=== PATIENT | female | born 1945 | race Caucasian/White ===

== ENCOUNTER 2022-10-09 19:29 | Outpatient (CLI) | payer MEDICARE, SELFPAY | END 2022-10-09 19:30 | disposition home or self-care (01) | LOC: NFLDUCREF 19:33 | PROVIDERS: PCP Family Medicine; Visit Provider Nurse Practitioner Family | DX: R11.10 Vomiting, unspecified (principal); N39.0 Urinary tract infection, site not specified | CPT/HCPCS: 87086; 87186 ==

== ENCOUNTER 2022-12-25 10:26 | Outpatient (CLI) | payer MEDICARE, SELFPAY ==
--- NOTE | 2022-12-25 10:15 | CRLHL7_ITS ---
For Patients: As a result of the Century Cures Act, medical imaging exams and procedure reports are released immediately into your electronic medical record. You may view this report before your referring provider. If you have questions, please contact your health care provider. INDICATION: Abnormal appearing esophagus on a recent CT angiogram of the chest, abdomen and pelvis [facility] December 07, 2022. The patient does report an intermittent history of dysphagia. Possible reflux. TECHNIQUE: Single contrast esophagram. The patient was imaged upright and in the recumbent as well as decubitus positions. COMPARISON: Correlation is made with a CT Scan December 07, 2022 performed at [facility]. FINDINGS: The esophagus is mildly diffusely patulous. There is no definite primary stripping wave. No tertiary contractions were observed either. There is a standing column of barium within nearly the entire esophagus throughout most of the examination. There is no obstruction as contrast does pass slowly into the stomach and duodenum. The appearance is not entirely compatible with achalasia but more likely significant presbyesophagus. Reflux could not be elicited in the upright or recumbent/decubitus positions without and with Valsalva maneuvers. No definite hiatal hernia either. 3 minutes 49 seconds fluoroscopy time utilized. IMPRESSION: 1. Mild diffusely patulous esophagus. 2. No primary stripping wave. 3. Findings may reflect significant presbyesophagus. 4. The contrast did not completely clear from the esophagus throughout the entire examination including with the patient upright. Dictated by Lc Ordoñez MD @ 12/25/2022 12:19:53 PM (Electronically Signed)
== END 2022-12-25 10:27 | disposition home or self-care (01) ==
LOC: RAD 10:27
PROVIDERS: PCP Family Medicine; Visit Provider Family Medicine
DX: K21.9 Gastro-esophageal reflux disease without esophagitis (principal); R93.3 Abnormal findings on diagnostic imaging of other parts of digestive tract
CPT/HCPCS: 74221

== ENCOUNTER 2023-02-26 11:54 | Outpatient (CLI) | payer MEDICARE, SELFPAY | END 2023-02-26 11:55 | disposition home or self-care (01) | LOC: AMB 03-02 12:12 | PROVIDERS: PCP Family Medicine; Visit Provider Family Medicine | DX: R41.82 Altered mental status, unspecified (principal) | CPT/HCPCS: A0425; A0429 ==

== ENCOUNTER 2023-02-26 12:21 | Emergency (ER) | payer MEDICARE, SELFPAY ==
[2023-02-26] VITALS (12 sets, daily range): BP systolic 128–183; BP diastolic 70–98; PULSE 86–95; RESP 16; TEMP 36.9; O2SAT 95–98; BMI 22.3
--- NOTE | 2023-02-26 12:23 | CRLHL7_ITS ---
For Patients: As a result of the Century Cures Act, medical imaging exams and procedure reports are released immediately into your electronic medical record. You may view this report before your referring provider. If you have questions, please contact your health care provider. INDICATION: Visual changes. Weakness. TECHNIQUE: CT head without contrast. COMPARISON: None. FINDINGS: CSF spaces: Within normal limits for age. Brain parenchyma and extra-axial spaces: Moderate cerebral atrophy is present. The franklin-white differentiation is normal. No sign of mass, hemorrhage, or midline shift. No extra-axial fluid collection. Skull base and calvarium: The visualized paranasal sinuses and mastoid air cells demonstrate no acute or significant findings. The visualized orbits are grossly unremarkable. No skull fractures. IMPRESSION: 1. No acute intracranial abnormality. 2. Mild cerebral atrophy. Please note that all CT scans at this facility use dose modulation, iterative reconstruction, and/or weight-based dosing when appropriate to reduce radiation dose to as low as reasonably achievable. Dictated by Anthony Balbuena MD @ 02/26/2023 12:49:20 PM (Electronically Signed)
--- NOTE | 2023-02-26 12:24 | CRLHL7_ITS ---
For Patients: As a result of the Century Cures Act, medical imaging exams and procedure reports are released immediately into your electronic medical record. You may view this report before your referring provider. If you have questions, please contact your health care provider. Indication: Weakness Comparison: None available. Technique: Single AP view chest Findings: There is hyperinflation and chronic interstitial change with minimal basilar atelectasis versus scar. Calcified mediastinal and hilar lymph nodes are appreciated. There is no pneumothorax or pleural effusion. The cardiac silhouette is mildly prominent with a tortuous thoracic aorta. The bony thorax is grossly intact. Impression: Hyperinflation and chronic interstitial change with likely mild superimposed pulmonary vascular congestion. Dictated by Sanya Akbar MD @ 02/26/2023 3:46:49 PM (Electronically Signed)
--- NOTE | 2023-02-26 12:37 | ED.GENADULT ---
HPI - General Adult General Date Seen: 02/26/23 Chief complaint: Altered Mental Status Stated complaint: Possible Stroke Time Seen by Provider: 02/26/23 12:28 Source: patient, EMS and RN notes reviewed Mode of arrival: EMS Limitations: no limitations History of Present Illness HPI narrative: Patient was brought in by EMS on a stroke code, on arrival here they stated is a soft stroke code. She admits she did not feel good this morning when she woke up. After she was sitting on the couch drinking her coffee and looking at her iPad. She admits she was not feeling right on the couch, went to get another cup of coffee. She has been endorsing visual changes with visible lines in them. She has had history of migraines and will get visual changes with these. She had a T[place] at [facility] in [place], since then these visible visual lines have worsened. No headache. She is seeing these visual changes in both eyes. She noted when she was reading that she could not retain any of the information, tried reading out loud. She did try getting up to go walk to get more coffee and had to sit down twice on the way into the kitchen. She felt extremely weak. She denies any chest pain, no palpitations. There is no focal motor weakness it was a global weakness. No fevers or chills. She notes no numbness or tingling. She does feels fuzzy and unclear in her head. She is not feeling well and does not feel right. This spell on the couch was at about 11:00 a.m., possibly latest at 11:30 a.m. patient was seen in the hallway when EMS 1st arrived, was diverted to have a noncontrast head CT. Related Data Home Medications Medication Instructions Recorded Confirmed alendronate 70 mg tablet ea PO 10/09/22 10/09/22 mirabegron 25 mg tablet,extended ea PO 10/09/22 10/09/22 release 24 hr (Myrbetriq) nabumetone 750 mg tablet 750 mg PO BID 10/09/22 02/26/23 omeprazole 20 mg capsule,delayed 20 mg PO 10/09/22 10/09/22 release sertraline 100 mg tablet 250 mg PO 10/09/22 10/09/22 simvastatin 20 mg tablet 20 mg PO 10/09/22 10/09/22 Previous Rx's Medication Instructions Recorded metoclopramide HCl 10 mg tablet 10 mg PO Q6H PRN nausea and 10/09/22 (Reglan) vomiting #30 tabs sulfamethoxazole 800 1 tab PO BID #6 tabs 10/09/22 mg-trimethoprim 160 mg tablet (Bactrim DS) Allergies Allergy/AdvReac Type Severity Reaction Status Date / Time zolpidem [From Ambien] Allergy Verified 02/26/23 12:58 Review of Systems Status of ROS: Reports: 6 or more systems reviewed and unremarkable except as noted in History and below [facility] Medical History UTI (urinary tract infection) ?N39.0 - Urinary tract infection, site not specified (ICD-10) Retching ?R11.10 - Vomiting, unspecified (ICD-10) Social History Smoking Status: Former smoker How often do you have a drink containing alcohol: 4 or more times a week How many standard drinks containing alcohol do you have on a typical day: 1 or 2 AUDIT-C Alcohol total score: 4 Non-prescribed substance use: denies use Exam Const: Vital Signs, click to edit/add: Vital Signs - 24 hr 02/26/23 12:42 02/26/23 12:45 02/26/23 13:00 Temperature 98.4 F Pulse Rate [Right Pulse Oximeter] 91 95 93 Respiratory Rate 16 16 16 Blood Pressure [Le ft Upper Arm] 158/82 H 160/70 H 166/76 H Pulse Oximetry 96 98 97 Oxygen Delivery Me thod Room Air Room Air Room Air 02/26/23 13:32 02/26/23 13:45 02/26/23 14:00 Temperature Pulse Rate [Right Pulse Oximeter] 89 92 92 Respiratory Rate 16 16 16 Blood Pressure [Le ft Upper Arm] 151/98 H 172/84 H 183/87 H Pulse Oximetry 95 96 96 Oxygen Delivery Me thod Room Air 02/26/23 14:15 02/26/23 14:30 02/26/23 14:45 Temperature Pulse Rate [Right Pulse Oximeter] 93 91 88 Respiratory Rate 16 16 16 Blood Pressure [Le ft Upper Arm] 161/89 H 180/83 H 182/87 H Pulse Oximetry Oxygen Delivery Me thod 02/26/23 15:00 02/26/23 16:00 02/26/23 16:30 Temperature Pulse Rate [Right Pulse Oximeter] 86 Respiratory Rate 16 16 Blood Pressure [Le ft Upper Arm] 162/88 H 141/73 H 128/93 H Pulse Oximetry Oxygen Delivery Me thod Documenting provider has reviewed patient's vital signs: yes Common normals: no apparent distress, average body habitus, oriented x3, no limitations, healthy appearing, alert and well nourished General appearance: cooperative, comfortable, well kempt and well developed HENMT: Common normals: normocephalic, head/scalp atraumatic, hearing grossly normal bilaterally, external ears normal, external nose normal, nasal mucous membranes and turbinates normal, moist oral mucous membranes, oropharynx normal, dentition normal and gingiva normal Head and scalp: normocephalic and atraumatic Face and sinus: normal facial exam Nose: external nose normal and nasal mucous membranes and turbinates normal External ear: external ears normal Eye: Common normals: PERRL, EOMs intact bilaterally, conjunctivae normal and no scleral icterus Conjunctiva: conjunctiva(e) normal Pupil: PERRL Neck & C-Spine: Common normals: full ROM, no lymphadenopathy, supple, no JVD and thyroid normal Thyroid: thyroid normal Resp: Common normals: normal respiratory effort, no retractions, no use of accessory muscles and clear to auscultation bilaterally Auscultation: clear to auscultation bilaterally Cardio: Common normals: no JVD, regular rate, regular rhythm, S1 normal heart sound, S2 normal heart sound, no gallops, no clicks and no murmurs Rate: regular rate Rhythm: regular rhythm Heart sounds: S1 normal and S2 normal GI: Common normals: Normal to inspection, nondistended, normoactive bowel sounds present, soft to palpation, non-tender, no hepatosplenomegaly and no masses Palpation: soft and no hepatosplenomegaly Neuro: Common normals: oriented x3 Sensorium/orientation: alert Psych: Appearance: well kempt Course Reevaluation(s) Time of Reevaluation #1: 15:42 Reevaluation #1: Patient is at MRI, spoke with her daughter whom is here. We will await the MRI, have reviewed overall labs are reassuring. Still awaiting urinalysis results. Time of Reevaluation #2: 17:17 Reevaluation #2: Have reviewed with patient and her 2 children here that we have not found anything to explain her current symptoms. They bring up that she is due for EGD, know that she has a dilated esophagus. They wonder if the esophagus could be causing her to have tracheal issues. Reviewed that the esophagus is much more compliant/soft than the trachea which has rings that keep it open. She was having shortness of breath before the TAVR, this has continued but she admits that it is much better. She has no peripheral edema, no hypoxia, no tachypnea and lungs are CTAB. Blood pressure was mildly elevated here for most of the day but now is better (was 103 while I talked to her), now most recent 128 systolic. We discussed labile hypertension, problems with initiating blood pressure medications and when the blood pressure normal, can drop it to be too low. Her MRI is showing some mild volume loss and chronic microangiopathy, reviewed that the angiopathy can be consistent with small vessel changes from elevated blood pressures. She feels that her blood pressures have usually run low, not high. Her son is willing to stay with her tonight, she is comfortable going home. Unclear why she was feeling the way she was today, do not have a specific etiology but have reviewed that if she has ongoing symptoms or changes, please seek re-evaluation. Consultations Consultation #1: Head CT results called to me, no acute findings. Time: 12:51 Consultation #2: Did speak with Stroke Neurology at [facility]. He did recommend doing MRI brain noncontrast. Thought more likely to be migrainous in nature. Did not feel that CTA is were necessary as this is very unlikely to be a large vessel occlusion. Dr. Anthony is the neurologist. Time: 13:02 Vital Signs Vital signs: Initial Vital Signs Temperature 98.4 F 02/26/23 12:42 Temperature Source Temporal Artery Scan 02/26/23 12:42 Pulse Rate 91 02/26/23 12:42 Respiratory Rate 16 02/26/23 12:42 Blood Pressure 158/82 H 02/26/23 12:42 Blood Pressure Mean 107 H 02/26/23 12:42 Blood Pressure Position Semi-Fowlers 02/26/23 12:42 Pulse Oximetry 96 02/26/23 12:42 Oxygen Delivery Method Room Air 02/26/23 12:42 Vital Signs Temperature 98.4 F 02/26/23 12:42 Pulse Rate 91 02/26/23 12:42 Respiratory Rate 16 02/26/23 12:42 Blood Pressure 158/82 H 02/26/23 12:42 Pulse Oximetry 96 02/26/23 12:42 Oxygen Delivery Method Room Air 02/26/23 12:42 Temperature 98.4 F 02/26/23 12:42 Pulse Rate 86 02/26/23 15:00 Respiratory Rate 16 02/26/23 16:30 Blood Pressure 128/93 H 02/26/23 16:30 Pulse Oximetry 96 02/26/23 14:00 Oxygen Delivery Method Room Air 02/26/23 13:32 Medical Decision Making Lab Data Lab results reviewed: Yes I reviewed the patient's lab results Labs: Lab Results 02/26/23 02/26/23 02/26/23 Range/Units 12:25 13:30 16:30 WBC 5.75 (4.50-11.00) K/uL RBC 4.05 (4.00-5.20) m/uL Hgb 12.7 (12.0-16.0) gm/dL Hct 38.3 (33.0-51.0) % MCV 95 (80-100) fL MCH 31 (26-34) pg MCHC 33 (32-36) gm/dL RDW Coeff of Ignacio 14.6 (11.5-15.5) % Plt Count 134 L (140-440) K/uL Neut % (Auto) 79.8 H (42.0-72.0) % Lymph % (Auto) 11.0 L (20-44) % [place] % (Auto) 8.3 (0.0-11.0) % Eos % (Auto) 0.5 (0.0-7.0) % Baso % (Auto) 0.2 (0.0-3.0) % Neut # (Auto) 4.60 (1.7-7.0) K/uL Lymph # (Auto) 0.60 L (0.90-2.90) K/uL [place] # (Auto) 0.50 (0.00-0.90) K/UL Eos # (Auto) 0.03 (0.00-0.50) K/uL Baso # (Auto) 0.01 (0.00-0.30) K/uL Sodium 136 (135-149) mmol/L Potassium 4.7 (3.6-5.1) mmol/L Chloride 102 (96-114) mmol/L Carbon Dioxide 29 (20-32) mmol/L BUN 15 (7-30) mg/dL Creatinine 0.7 (0.5-1.5) mg/dL Estimated Creat Clear 41.33 Estimated GFR 90 ml/min Glucose 107 (60-115) mg/dL Lactate 1.7 (0.5-1.9) mmol/L Calcium 9.3 (8.4-10.6) mg/dL Magnesium 1.7 (1.5-2.6) mg/dL Total Bilirubin 1.2 (0.1-1.5) mg/dL AST 54 H (12-35) U/L ALT 31 (4-35) U/L Alkaline Phosphatase 95 (40-150) U/L C-Reactive Protein 0.6 (0.5-1.0) mg/dL NT-Pro-B Natriuret Pep 810 pg/mL Total Protein 7.3 (6.0-8.3) g/dL Albumin 4.5 (3.3-5.0) g/dL Urine Color Yellow (Yellow) Urine Appearance Clear (Clear) Urine pH 5.5 (5.0-8.5) Ur Specific [place] <= 1.005 (1.000-1.030) Urine Protein Negative (Negative) Urine Glucose (UA) Negative (Negative) Urine Ketones Negative (Negative) Urine Blood 1+ A (Negative) Urine Nitrite Negative (Negative) Urine Bilirubin Negative (Negative) Urine Urobilinogen 0.2 (0.2-1.0) Ur Leukocyte Esterase Negative (Negative) Urine RBC 2-5 A (0-2) Urine WBC 0-2 (0-5) Ur Squamous Epith Cells None (None-Few) Urine Bacteria None (None) Ethyl Alcohol < 0.01 L (0.01-0.03) % SARS-CoV-2 (PCR) Negative SARS-CoV-2 (Negative) POC Troponin I 0.00 L (0.01-0.04) ng/ml Imaging Data Chest x-ray: Attestation: I have reviewed the pertinent imaging results. Radiologist's impression: Patient: LELE FISHER Facility:?[facility] Patient ID:?[id number] Site Patient ID:?[id number]. Site :?[id number] Study:?XRay Chest 1 VIEW-02/26/2023 3:20:05 PM Ordering Physician:Liza Goldberg Final Report: Indication: Weakness Comparison: None available. Technique: Single AP view chest Findings: There is hyperinflation and chronic interstitial change with minimal basilar atelectasis versus scar. Calcified mediastinal and hilar lymph nodes are appreciated. There is no pneumothorax or pleural effusion. The cardiac silhouette is mildly prominent with a tortuous thoracic aorta. The bony thorax is grossly intact. Impression: Hyperinflation and chronic interstitial change with likely mild superimposed pulmonary vascular congestion. Dictated by Sanya Akbar MD @ 02/26/2023 3:46:49 PM (Electronic Signature) MR Brain: Attestation: I have reviewed the pertinent imaging results. Radiologist's impression: Patient: LELE FISHER Facility:?[facility] Patient ID:?[id number] Site Patient ID:?[id number]. Site :?[id number] Study:?MRI Head W/O-02/26/2023 4:41:01 PM Ordering Physician:Liza Goldberg Final Report: Indication: Visual changes, difficulty reading/remembering Technique: Multiplanar, multisequence MRI of the brain obtained without contrast. Comparison: Earlier same day CT head Findings: The ventricles and cortical sulci are mildly prominent. No hydrocephalus or herniation. No acute/subacute ischemia, intracranial hemorrhage or abnormal extra-axial fluid collection. Scattered punctate foci of FLAIR hyperintensity are noted throughout the supratentorial white matter. Partially empty sella variant. Major expected intracranial flow voids are visualized. Bone marrow signal is unremarkable. Hyperostosis frontalis interna. No suspicious findings in the regional soft tissues. No paranasal sinus air-fluid level. Trace nonspecific fluid at the mastoid tips. Included orbits are unremarkable. Impression: 1. No evidence of acute intracranial abnormality. 2. Mild generalized cerebral volume loss, and mild chronic microangiopathy changes. Dictated by Cindy Marquez MD @ 02/26/2023 4:57:07 PM (Electronic Signature) ECG Data Attestation: I personally reviewed and interpreted this ECG as follows: (Sinus rhythm, 92 beats per minute, no acute pathology. QT corrected 464 milliseconds.) Prior ECG tracings: not available for review Critical Care Time Critical Care Time Critical Care Time: No Discharge Plan Discharge Clinical Impression: Weakness, Alteration in vision Patient Disposition: Home, Self-Care Condition: Stable Instructions: Weakness (ED) Additional Instructions: Need to see your primary provider in keep your other specialty appointments that have scheduled. If you have return of increased weakness, are unable to walk, develop new or concerning symptoms, do recommend re-evaluation. There is no evidence of acute stroke, your labs are reassuring. Activity Level: Activity as Tolerated Prescriptions: No Action sertraline 100 mg tablet 250 mg PO omeprazole 20 mg capsule,delayed release(DR/EC) 20 mg PO Myrbetriq 25 mg tablet extended release 24 hr PO simvastatin 20 mg tablet 20 mg PO Patient Comments: TAKE 1 TABLET BY MOUTH EVERY DAY IN THE EVENING alendronate 70 mg tablet PO nabumetone 750 mg tablet 750 mg PO BID metoclopramide HCl [Reglan] 10 mg tablet 10 mg PO Q6H PRN (Reason: nausea and vomiting) Qty: 30 0RF sulfamethoxazole-trimethoprim [Bactrim DS] 800-160 mg tablet 1 tab PO BID Qty: 6 0RF Follow Up/Referrals: Annabelle Encarnacion DO [Primary Care Provider] - Stand Alone Forms: MyHealth Info Instructions
--- NOTE | 2023-02-26 13:03 | CRLHL7_ITS ---
For Patients: As a result of the Century Cures Act, medical imaging exams and procedure reports are released immediately into your electronic medical record. You may view this report before your referring provider. If you have questions, please contact your health care provider. Indication: Visual changes, difficulty reading/remembering Technique: Multiplanar, multisequence MRI of the brain obtained without contrast. Comparison: Earlier same day CT head Findings: The ventricles and cortical sulci are mildly prominent. No hydrocephalus or herniation. No acute/subacute ischemia, intracranial hemorrhage or abnormal extra-axial fluid collection. Scattered punctate foci of FLAIR hyperintensity are noted throughout the supratentorial white matter. Partially empty sella variant. Major expected intracranial flow voids are visualized. Bone marrow signal is unremarkable. Hyperostosis frontalis interna. No suspicious findings in the regional soft tissues. No paranasal sinus air-fluid level. Trace nonspecific fluid at the mastoid tips. Included orbits are unremarkable. Impression: 1. No evidence of acute intracranial abnormality. 2. Mild generalized cerebral volume loss, and mild chronic microangiopathy changes. Dictated by Cindy Marquez MD @ 02/26/2023 4:57:07 PM (Electronically Signed)
[2023-02-26 13:41] LABS: Lactate* 1.7 mmol/L (0.5-1.9)
[2023-02-26 13:44] LABS: Basophils Absolute Auto 0.01 K/uL (0.00-0.30); Basophils Percent Auto 0.2 % (0.0-3.0); Eosinophils Absolute Auto 0.03 K/uL (0.00-0.50); Eosinophils Percent Auto 0.5 % (0.0-7.0); Hematocrit 38.3 % (33.0-51.0); Hemoglobin* 12.7 gm/dL (12.0-16.0); Immature Granulocytes Abs Auto 0.01 K/uL (0.00-0.30); Immature Granulocytes Pct Auto 0.2 %; Mean Corpuscular HGB Conc 33 gm/dL (32-36); Mean Corpuscular Hemoglobin 31 pg (26-34); Mean Corpuscular Volume 95 fL (80-100); Monocytes Percent Auto 8.3 % (0.0-11.0); Neutrophils Percent Auto 79.8 % (42.0-72.0); Platelet Count* 134 K/uL (140-440); RDW Coefficient of Variation % 14.6 % (11.5-15.5); Red Blood Count 4.05 m/uL (4.00-5.20); White Blood Count* 5.75 K/uL (4.50-11.00)
[2023-02-26 13:45] LABS: Slide Review Reflex No
[2023-02-26 14:12] LABS: Blood Urea Nitrogen* 15 mg/dL (7-30); Carbon Dioxide* 29 mmol/L (20-32); Chloride* 102 mmol/L (96-114); Creatinine* 0.7 mg/dL (0.5-1.5); Est. Creatinine Clearance* 41.33; Estimated Glomerular Filt Rate 90 ml/min; Potassium* 4.7 mmol/L (3.6-5.1); Sodium* 136 mmol/L (135-149)
[2023-02-26 14:13] LABS: Alanine Aminotransferase* 31 U/L (4-35); Albumin* 4.5 g/dL (3.3-5.0); Alkaline Phosphatase* 95 U/L (40-150); Aspartate Amino Transferase* 54 U/L (12-35); Bilirubin Total* 1.2 mg/dL (0.1-1.5); C Reactive Protein* 0.6 mg/dL (0.5-1.0); Calcium* 9.3 mg/dL (8.4-10.6); Glucose* 107 mg/dL (60-115); Total Protein* 7.3 g/dL (6.0-8.3)
[2023-02-26 14:16] LABS: Magnesium* 1.7 mg/dL (1.5-2.6); NT Pro B Type NatriureticPept* 810 pg/mL
[2023-02-26 14:17] LABS: Ethanol* < 0.01 % (0.01-0.03)
[2023-02-26 14:18] LABS: SARS PCR* Negative SARS-CoV-2 (Negative)
[2023-02-26 16:38] LABS: Appearance Urine Clear (Clear); Bilirubin Urine Negative (Negative); Blood Urine 1+ (Negative); Color Urine Yellow (Yellow); Glucose Urine Negative (Negative); Ketones Urine Negative (Negative); Leukocyte Esterase Urine Negative (Negative); Nitrite Urine Negative (Negative); Protein Urine Negative (Negative); Specific Gravity Urine <= 1.005 (1.000-1.030); Urobilinogen Urine 0.2 (0.2-1.0); pH Urine 5.5 (5.0-8.5)
[2023-02-26 16:49] LABS: WBC Urine 0-2 (0-5)
== END 2023-02-26 17:55 | disposition home or self-care (01) ==
PROVIDERS: Emergency Provider Family Medicine; PCP Family Medicine
DX: R53.1 Weakness (principal); H53.8 Other visual disturbances
CPT/HCPCS: 36415; 70450; 70551; 71045; 80053; 81001; 82077; 83605; 83735; 83880; 84484; 85025; 86140; 87635; 93005; 94761; 99284; 99285

== ENCOUNTER 2023-03-30 22:21 | Emergency (ER) | payer MEDICARE, SELFPAY ==
[2023-03-30 22:31] VITALS: BP 133/77; PULSE 96; RESP 16; TEMP 36.3; O2SAT 97; BMI 23.0
--- NOTE | 2023-03-30 22:38 | ED.GENADULT ---
HPI - General Adult General Time Seen by Provider: 22:38 Date Seen: 03/30/23 Chief complaint: Unspecified Complaint, Adult Stated complaint: esophagus issues Time Seen by Provider: 03/30/23 22:38 Source: patient and RN notes reviewed Mode of arrival: ambulatory Limitations: no limitations History of Present Illness HPI narrative: May is a very pleasant 78-year-old female who is 2 and half months status post aortic valve replacement, history of breast cancer status post mastectomy, history of esophageal achalasia who comes to the emergency room with inability to eat or drink over the past 48 hours. Patient is actually scheduled to see [facility] surgeon at [place] tomorrow morning after having had an endoscopy and motility study with [facility] last week. Unfortunately in the past 48 hours May has had more vomiting. Today she has been unable to keep any fluids or food down. At times she has had discomfort in her Right upper quadrant but there is no pain present at this time. She has not otherwise been ill and has not had any diarrhea. She notes that she is also short of breath, but states that this has been a chronic thing since before her valve replacement. She was hoping that the valve replacement would help. She notes however that a [employer] supervisor told her that she had scarring of her lung tissue from previous aspiration. Related Data Home Medications Medication Instructions Recorded Confirmed alendronate 70 mg tablet ea PO 10/09/22 10/09/22 mirabegron 25 mg tablet,extended ea PO 10/09/22 10/09/22 release 24 hr (Myrbetriq) nabumetone 750 mg tablet 750 mg PO BID 10/09/22 02/26/23 omeprazole 20 mg capsule,delayed 20 mg PO 10/09/22 10/09/22 release sertraline 100 mg tablet 250 mg PO 10/09/22 10/09/22 simvastatin 20 mg tablet 20 mg PO 10/09/22 10/09/22 Previous Rx's Medication Instructions Recorded metoclopramide HCl 10 mg tablet 10 mg PO Q6H PRN nausea and 10/09/22 (Reglan) vomiting #30 tabs sulfamethoxazole 800 1 tab PO BID #6 tabs 10/09/22 mg-trimethoprim 160 mg tablet (Bactrim DS) Allergies Allergy/AdvReac Type Severity Reaction Status Date / Time zolpidem [From Ambien] Allergy Verified 02/26/23 12:58 Review of Systems Status of ROS: Reports: 10 or more systems reviewed and unremarkable except as noted in History and below Const: Denies: fever or chills ENMT: Denies: throat pain, difficulty swallowing or hoarseness Cardio: Reports: chest pain ( when trying to eat) and shortness of breath with exertion ( chronic) Resp: Reports: shortness of breath ( chronic); Denies: cough GI: Reports: abdominal pain ( intermittent right upper quadrant), nausea and vomiting; Denies: diarrhea or difficulty swallowing PFSH PFS Medical History UTI (urinary tract infection) ?N39.0 - Urinary tract infection, site not specified (ICD-10) Retching ?R11.10 - Vomiting, unspecified (ICD-10) Social History Smoking Status: Former smoker How often do you have a drink containing alcohol: 4 or more times a week How many standard drinks containing alcohol do you have on a typical day: 1 or 2 AUDIT-C Alcohol total score: 4 Non-prescribed substance use: denies use Exam Narrative: Exam Narrative: kvng is a very pleasant well-spoken woman. She has occasional episodes of needing to spit into vomit bag. Her color is good. Neck is supple. Heart with a regular rate and rhythm. I do have increased S2 quality but no click that I would normally associated with a valve. Lungs are clear bilaterally. no crackles are noted in the lower lung spangler. Abdomen is soft nontender. No right upper quadrant tenderness -negative Bynum sign. Const: Vital Signs, click to edit/add: Vital Signs - 24 hr 03/30/23 22:31 03/30/23 23:53 Temperature 97.4 F L 97.8 F Pulse Rate [Right Pulse Oximeter] 96 78 Respiratory Rate 16 16 Blood Pressure [Ri ght Upper Arm] 133/77 130/78 Pulse Oximetry 97 97 Oxygen Delivery Me thod Room Air Room Air Documenting provider has reviewed patient's vital signs: yes Course Course Hospital Course: At this time patient presents with complaints of inability to eat or drink. This would be consistent with esophageal achalasia. May does not report any recent illnesses diarrhea or ill contacts to think that this would be something like gastroenteritis or the stomach flu. We spoke about medication possibilities which are not noted to be first-line treatment but I would be willing to try. We spoke specifically about nitroglycerin but patient states that she normally has low blood pressure. Of course there is a risk for sudden the lower in blood pressure although now with her mechanical valve and relief of aortic stenosis this would be something I would be willing to try. Alternatively we could do fluids and check blood work and have patient follow-up as scheduled tomorrow morning with surgery. They are electing (her son is present with her) to do fluids and blood work only. They are also a many able to chest x-ray as she has had history of aspiration in the past. Vital Signs Vital signs: Initial Vital Signs Temperature 97.4 F L 03/30/23 22:31 Temperature Source Temporal Artery Scan 03/30/23 22:31 Pulse Rate 96 03/30/23 22:31 Pulse Rhythm Regular 03/30/23 22:31 Respiratory Rate 16 03/30/23 22:31 Blood Pressure 133/77 03/30/23 22:31 Blood Pressure Mean 95 03/30/23 22:31 Blood Pressure Position Sitting 03/30/23 22:31 Pulse Oximetry 97 03/30/23 22:31 Oxygen Delivery Method Room Air 03/30/23 22:31 Vital Signs Temperature 97.4 F L 03/30/23 22:31 Pulse Rate 96 03/30/23 22:31 Respiratory Rate 16 03/30/23 22:31 Blood Pressure 133/77 03/30/23 22:31 Pulse Oximetry 97 03/30/23 22:31 Oxygen Delivery Method Room Air 03/30/23 22:31 Temperature 97.8 F 03/30/23 23:53 Pulse Rate 78 03/30/23 23:53 Respiratory Rate 16 03/30/23 23:53 Blood Pressure 130/78 03/30/23 23:53 Pulse Oximetry 97 03/30/23 23:53 Oxygen Delivery Method Room Air 03/30/23 23:53 Medical Decision Making MDM Narrative Medical decision making narrative: 1. Esophageal achalasia -with inability to eat or drink in the last 24 hours. Patient noted to be feeling better after 1 L of normal saline and 4 mg of Zofran. Patient declined nitroglycerin. Will discharge patient home at this time. Have her follow-up as scheduled tomorrow morning. 2. Disposition-home with her son. Return for worsening symptoms and as needed. Medical Records Medical records reviewed: Yes I reviewed the patient's medical records Lab Data Lab results reviewed: Yes I reviewed the patient's lab results Labs: Lab Results 03/30/23 Range/Units 23:10 WBC 5.40 (4.50-11.00) K/uL RBC 4.05 (4.00-5.20) m/uL Hgb 12.5 (12.0-16.0) gm/dL Hct 37.9 (33.0-51.0) % MCV 94 (80-100) fL MCH 31 (26-34) pg MCHC 33 (32-36) gm/dL RDW Coeff of Ignacio 13.4 (11.5-15.5) % Plt Count 183 (140-440) K/uL Neut % (Auto) 76.1 H (42.0-72.0) % Lymph % (Auto) 13.7 L (20-44) % Charlotte % (Auto) 8.1 (0.0-11.0) % Eos % (Auto) 1.3 (0.0-7.0) % Baso % (Auto) 0.6 (0.0-3.0) % Neut # (Auto) 4.10 (1.7-7.0) K/uL Lymph # (Auto) 0.70 L (0.90-2.90) K/uL Charlotte # (Auto) 0.40 (0.00-0.90) K/UL Eos # (Auto) 0.07 (0.00-0.50) K/uL Baso # (Auto) 0.03 (0.00-0.30) K/uL Abs Immat Gran (auto) 0.01 (0.00-0.30) K/uL Imm/Tot Granulo (auto) 0.2 % Sodium 141 (135-149) mmol/L Potassium 3.8 (3.6-5.1) mmol/L Chloride 107 (96-114) mmol/L Carbon Dioxide 28 (20-32) mmol/L BUN 17 (7-30) mg/dL Creatinine 0.9 (0.5-1.5) mg/dL Estimated Creat Clear 39.59 Estimated GFR 66 ml/min Glucose 118 H (60-115) mg/dL Calcium 9.3 (8.4-10.6) mg/dL Magnesium 1.8 (1.5-2.6) mg/dL Total Bilirubin 0.9 (0.1-1.5) mg/dL AST 54 H (12-35) U/L ALT 28 (4-35) U/L Alkaline Phosphatase 90 (40-150) U/L Total Protein 7.4 (6.0-8.3) g/dL Albumin 4.3 (3.3-5.0) g/dL Lipase 72 (23-300) U/L Imaging Data Chest x-ray: Attestation: I have reviewed the pertinent imaging results. Discharge Plan Discharge Prescriptions: No Action sertraline 100 mg tablet 250 mg PO omeprazole 20 mg capsule,delayed release(DR/EC) 20 mg PO Myrbetriq 25 mg tablet extended release 24 hr PO simvastatin 20 mg tablet 20 mg PO Patient Comments: TAKE 1 TABLET BY MOUTH EVERY DAY IN THE EVENING alendronate 70 mg tablet PO nabumetone 750 mg tablet 750 mg PO BID metoclopramide HCl [Reglan] 10 mg tablet 10 mg PO Q6H PRN (Reason: nausea and vomiting) Qty: 30 0RF sulfamethoxazole-trimethoprim [Bactrim DS] 800-160 mg tablet 1 tab PO BID Qty: 6 0RF Follow Up/Referrals: Annabelle Encarnacion DO [Primary Care Provider] -
--- NOTE | 2023-03-30 23:00 | CRLHL7_ITS ---
For Patients: As a result of the Cures Act, medical imaging exams and procedure reports are released immediately into your electronic medical record. You may view this report before your referring provider. If you have questions, please contact your health care provider. INDICATION: History of aspiration TECHNIQUE: Chest 2 view. Permanently recorded images are archived. COMPARISON: 12/10/2015 FINDINGS: Cardiovascular and mediastinum: Normal heart size. Atherosclerotic thoracic aorta. Calcified hilar lymph nodes bilaterally. Aortic valve replacement. Lungs and pleural spaces: No focal consolidation. Scattered calcified granulomata in the bases. No pleural effusion or pneumothorax. Bones and soft tissues: Unremarkable for age. IMPRESSION: No evidence of an acute pulmonary process. Dictated by Dmitriy Ordonez MD @ 03/31/2023 12:23:11 AM (Electronically Signed)
[2023-03-30] MEDS: 0.9 % SODIUM CHLORIDE 1000 ml 1,000 ML IV (23:17)
[2023-03-30] MEDS: ONDANSETRON 2 MG/ML inj 4 MG IVP (23:17)
[2023-03-30 23:28] LABS: Basophils Absolute Auto 0.03 K/uL (0.00-0.30); Basophils Percent Auto 0.6 % (0.0-3.0); Eosinophils Absolute Auto 0.07 K/uL (0.00-0.50); Eosinophils Percent Auto 1.3 % (0.0-7.0); Hematocrit 37.9 % (33.0-51.0); Hemoglobin* 12.5 gm/dL (12.0-16.0); Immature Granulocytes Abs Auto 0.01 K/uL (0.00-0.30); Immature Granulocytes Pct Auto 0.2 %; Lymphocytes Percent Auto 13.7 % (20-44); Mean Corpuscular HGB Conc 33 gm/dL (32-36); Mean Corpuscular Hemoglobin 31 pg (26-34); Mean Corpuscular Volume 94 fL (80-100); Monocytes Percent Auto 8.1 % (0.0-11.0); Neutrophils Percent Auto 76.1 % (42.0-72.0); Platelet Count* 183 K/uL (140-440); RDW Coefficient of Variation % 13.4 % (11.5-15.5); Red Blood Count 4.05 m/uL (4.00-5.20)
[2023-03-30 23:35] LABS: Slide Review Reflex No
[2023-03-30 23:41] LABS: Albumin* 4.3 g/dL (3.3-5.0); Chloride* 107 mmol/L (96-114)
[2023-03-30 23:42] LABS: Potassium* 3.8 mmol/L (3.6-5.1); Sodium* 141 mmol/L (135-149)
[2023-03-30 23:44] LABS: Alanine Aminotransferase* 28 U/L (4-35); Alkaline Phosphatase* 90 U/L (40-150); Aspartate Amino Transferase* 54 U/L (12-35); Bilirubin Total* 0.9 mg/dL (0.1-1.5); Blood Urea Nitrogen* 17 mg/dL (7-30); Carbon Dioxide* 28 mmol/L (20-32); Creatinine* 0.9 mg/dL (0.5-1.5); Est. Creatinine Clearance* 39.59; Estimated Glomerular Filt Rate 66 ml/min; Glucose* 118 mg/dL (60-115); Total Protein* 7.4 g/dL (6.0-8.3)
[2023-03-30 23:45] LABS: Calcium* 9.3 mg/dL (8.4-10.6); Lipase* 72 U/L (23-300); Magnesium* 1.8 mg/dL (1.5-2.6)
[2023-03-30 23:53] VITALS: BP 130/78; PULSE 78; RESP 16; TEMP 36.6; O2SAT 97
== END 2023-03-31 00:34 | disposition home or self-care (01) ==
LOC: ED 23:02
PROVIDERS: Emergency Provider Family Medicine; PCP Family Medicine
DX: K22.0 Achalasia of cardia (principal)
CPT/HCPCS: 36415; 71046; 80053; 83690; 83735; 85025; 96374; 99283; 99284; J2405; J7030

== ENCOUNTER 2023-08-27 15:19 | Emergency (ER) | payer MEDICARE, SELFPAY ==
[2023-08-27 15:49] VITALS: BP 103/50; PULSE 82; RESP 18; TEMP 36.6; O2SAT 98; BMI 20.9
--- NOTE | 2023-08-27 17:24 | ED.GENADULT ---
HPI - General Adult General Chief complaint: Dizziness/Vertigo Stated complaint: vertigo Time Seen by Provider: 08/27/23 17:23 History of Present Illness HPI narrative: Patient reports episode where she felt like she was on a carnival ride and reached out to her son but still had sensation she was falling down. Now feels alot better though maybe still off balance. Neurological tests negative in triage. Also notes history of aural migraines. 78-year-old woman presenting to the emergency department with concern of dizziness. Clarified by son she had been sitting on the couch got up went to the kitchen to place a gravy boat above the Fridge reaching over her head and asked for his help as she was feeling unsteady. Says things were spinning. This lasted about 1 minute. This is the 3rd episode that she has had since having surgery for stenotic aortic valve I believe in December of this year. Following that in February? had surgery for achalasia of the esophagus. Prior had breast cancer with chemo and radiation. She notes a history of atypical migraines. Concern is that maybe might have experienced a stroke with some cholesterol flicking off her aortic valve. Currently feeling well other than a subtle sense of lightheadedness. She has been experiencing exertional dyspnea particular going upstairs that has persisted since surgery. She due to esophageal issues, did not yet participate in cardiac rehab. Since TAVR procedure she has had 2 episodes of some dizziness just not quite as intense as this today. One was while she was at the movie [employer]. She had gotten up to use restroom came back to the seat and then was feeling dizzy eyes open or closed. Related Data Home Medications Medication Instructions Recorded Confirmed mirabegron 25 mg tablet,extended ea PO 10/09/22 10/09/22 release 24 hr (Myrbetriq) sertraline 100 mg tablet 250 mg PO 10/09/22 10/09/22 simvastatin 20 mg tablet 20 mg PO 10/09/22 10/09/22 calcium carbonate-vitamin D2 PO 09/13/23 Allergies Allergy/AdvReac Type Severity Reaction Status Date / Time zolpidem [From Ambien] Allergy Verified 09/13/23 21:49 Review of Systems Status of ROS: Reports: 6 or more systems reviewed and unremarkable except as noted in History and below [facility] Medical History UTI (urinary tract infection) ?N39.0 - Urinary tract infection, site not specified (ICD-10) Retching ?R11.10 - Vomiting, unspecified (ICD-10) Social History Smoking Status: Former smoker How often do you have a drink containing alcohol: 4 or more times a week How many standard drinks containing alcohol do you have on a typical day: 1 or 2 AUDIT-C Alcohol total score: 4 Non-prescribed substance use: denies use Exam Narrative: Exam Narrative: Pleasant. Breathing easily. Fully alert. Speaking fluidly. GCS of 15. Cranial nerves 2-12 intact. Moving all extremities without difficulty and well-perfused. No edema. lungs are clear. Heart with 1/6 systolic murmur the right sternal border and trace carotid bruit on the left. On head impulse testing did have saccadic movement/positive to the left initially. Oropharynx unremarkable in TMs are clear. No facial swelling or erythema, does not sound to be congested in the nasopharynx Const: Vital Signs, click to edit/add: Vital Signs - 24 hr 08/27/23 15:49 Temperature 97.8 F Pulse Rate [Pulse Oximeter] 82 Respiratory Rate 18 Blood Pressure [Le ft Upper Arm] 103/50 L Pulse Oximetry 98 Documenting provider has reviewed patient's vital signs: yes Course Vital Signs Vital signs: Initial Vital Signs Temperature 97.8 F 08/27/23 15:49 Temperature Source Temporal Artery Scan 08/27/23 15:49 Pulse Rate 82 08/27/23 15:49 Respiratory Rate 18 08/27/23 15:49 Blood Pressure 103/50 L 08/27/23 15:49 Blood Pressure Mean 67 L 08/27/23 15:49 Pulse Oximetry 98 08/27/23 15:49 Vital Signs Temperature 97.8 F 08/27/23 15:49 Pulse Rate 82 08/27/23 15:49 Respiratory Rate 18 08/27/23 15:49 Blood Pressure 103/50 L 08/27/23 15:49 Pulse Oximetry 98 08/27/23 15:49 Temperature 97.8 F 08/27/23 15:49 Pulse Rate 82 08/27/23 15:49 Respiratory Rate 18 08/27/23 15:49 Blood Pressure 103/50 L 08/27/23 15:49 Pulse Oximetry 98 08/27/23 15:49 Medical Decision Making MDM Narrative Medical decision making narrative: Appears to have had some positional dizziness. Symptoms are brief/not persistent. Does not seem to have sinus disease. Does not seem to demonstrate arrhythmia here nor did she feel this at that time; any sense of palpitation. May have some orthostatic component. No symptoms otherwise to suggest infectious etiology. No treatable CVA symptoms; quite transient. Symptoms in general I think are complicated by deconditioning/cardiac reserve. Lack of persistent unlikely related to have normal chemistries. Has had relatively recent lab evaluation otherwise. Did discuss further workup for this. Offered to discuss further with Neurology of which she was in favor. Neurology favors peripheral vertiginous symptoms as well. Would continue with prescribed aspirin. Ms. Vallejo has been well without further event during time in the emergency department. Symptoms are not so clearly reproducible as to recommend Leeann maneuvers. She is reassured preferring no further workup. See patient discharge plan Discharge Plan Discharge Clinical Impression: Benign paroxysmal positional vertigo Patient Disposition: Home w/ Parent or Adult Condition: Improved Additional Instructions: Stay well-hydrated. Take care in transitions. Would follow up regarding this persistent exertional dyspnea however I think that once you get into cardiac rehab, well, this should make a difference. Return otherwise for new and focal weakness, persistent dizziness, chest pain, associated lightheadedness. Continue with your daily low-dose aspirin. Prescriptions: No Action sertraline 100 mg tablet 250 mg PO Myrbetriq 25 mg tablet extended release 24 hr PO simvastatin 20 mg tablet 20 mg PO Patient Comments: TAKE 1 TABLET BY MOUTH EVERY DAY IN THE EVENING calcium carbonate-vitamin D2 [Calcium with Vitamin D] PO Follow Up/Referrals: Annabelle Encarnacion DO [Primary Care Provider] - Stand Alone Forms: [employer] Info Instructions
== END 2023-08-27 18:30 | disposition home or self-care (01) ==
PROVIDERS: Emergency Provider Family Medicine; PCP Family Medicine
DX: H81.10 Benign paroxysmal vertigo, unspecified ear (principal)
CPT/HCPCS: 99283; 99284

== ENCOUNTER 2023-09-13 21:15 | Emergency (ER) | payer MEDICARE, SELFPAY ==
[2023-09-13 21:40] VITALS: BP 115/68; PULSE 101; RESP 14; TEMP 37.1; O2SAT 96; BMI 21.5
--- NOTE | 2023-09-13 21:51 | ED_ITS ---
HPI - General Adult General Chief complaint: Fall/Minor Trauma Stated complaint: light headed, fell over Time Seen by Provider: 09/13/23 21:50 History of Present Illness HPI narrative: Pt states she was at [facility] [employer] [facility] when she suddenly collapsed around 2100 tonight. Pt denies LOC, and states she felt lightheaded and then her left leg gave out. Pt states she hit left knee on the ground. Hx aortic valve replaced, esophagus surgery, mastectomy d/t breast cancer in 2017. Pt states following these surgeries, I always feel SOB and I'm always tired. 78-year-old woman presenting to the emergency department after an event where her left knee buckled and she recalls going gracefully to the ground. She did not hit her head. She is not having any headache neck or back pain. Seen by myself in this emergency department couple of weeks ago diagnosed with BPPV. She continues to be frustrated/disappointed by persistent exercise intolerance. This is following aortic valve replacement then surgery for esophageal achalasia which deferred cardiac rehab. She thought tonight she had her usual standing too long. She thought maybe she was going to feel vertiginous but did not really. She is not short of breath. No chest pain. No sense of irregular heartbeats but she feels like her heart is beating faster though when she palpates that it is not actually fast but she feels it more in her throat now. Often feeling a little lightheaded in the morning seems to improve with some caffeine. Related Data Home Medications Medication Instructions Recorded Confirmed mirabegron 25 mg tablet,extended ea PO 10/09/22 10/09/22 release 24 hr (Myrbetriq) sertraline 100 mg tablet 250 mg PO 10/09/22 10/09/22 simvastatin 20 mg tablet 20 mg PO 10/09/22 10/09/22 calcium carbonate-vitamin D2 PO 09/13/23 Allergies Allergy/AdvReac Type Severity Reaction Status Date / Time zolpidem [From Ambien] Allergy Verified 09/13/23 21:49 Review of Systems Status of ROS: Reports: 6 or more systems reviewed and unremarkable except as noted in History and below [facility] Medical History UTI (urinary tract infection) ?N39.0 - Urinary tract infection, site not specified (ICD-10) Retching ?R11.10 - Vomiting, unspecified (ICD-10) Social History Smoking Status: Former smoker How often do you have a drink containing alcohol: 4 or more times a week How many standard drinks containing alcohol do you have on a typical day: 1 or 2 AUDIT-C Alcohol total score: 4 Non-prescribed substance use: denies use Exam Narrative: Exam Narrative: Very pleasant. NAD. Breathing easily. Lungs are clear. Heart in regular rate and rhythm time I auscultation with 1-2/6 systolic murmur loudest at the right sternal border. Extremities are without edema. She is moving all extremities without difficulty. There is subtle point of erythema at the anterior left knee/patella centrally presumed area of impact. No swelling or particular tenderness palpation here. Cranial nerves 2-12 are intact. GCS of 15. Pupils are equal. Not demonstrating nystagmus or dizziness here today. Const: Vital Signs, click to edit/add: Vital Signs - 24 hr 09/13/23 21:40 09/13/23 22:25 09/13/23 22:26 Temperature 98.8 F Pulse Rate [Pulse Oximeter] 101 H Pulse Rate [orthos tatic lying] 92 Pulse Rate [orthos tatic sitting] 103 H Pulse Rate [orthos tatic standing] 98 Respiratory Rate 14 Blood Pressure [Ri ght Upper Arm] 115/68 Blood Pressure [or thostatic lying Le ft Arm] 141/60 H Blood Pressure [or thostatic sitting] 100/48 L Blood Pressure [or thostatic standing ] 95/42 L Pulse Oximetry 96 95 Oxygen Delivery Me thod Room Air Documenting provider has reviewed patient's vital signs: yes Course Vital Signs Vital signs: Initial Vital Signs Temperature 98.8 F 09/13/23 21:40 Temperature Source Temporal Artery Scan 09/13/23 21:40 Pulse Rate 101 H 09/13/23 21:40 Respiratory Rate 14 09/13/23 21:40 Blood Pressure 115/68 09/13/23 21:40 Blood Pressure Mean 83 09/13/23 21:40 Blood Pressure Position Sitting 09/13/23 21:40 Pulse Oximetry 96 09/13/23 21:40 Oxygen Delivery Method Room Air 09/13/23 21:40 Vital Signs Temperature 98.8 F 09/13/23 21:40 Pulse Rate 101 H 09/13/23 21:40 Respiratory Rate 14 09/13/23 21:40 Blood Pressure 115/68 09/13/23 21:40 Pulse Oximetry 96 09/13/23 21:40 Oxygen Delivery Method Room Air 09/13/23 21:40 Temperature 98.8 F 09/13/23 21:40 Pulse Rate 92 09/13/23 22:26 Respiratory Rate 14 09/13/23 21:40 Blood Pressure 141/60 H 09/13/23 22:26 Pulse Oximetry 95 09/13/23 22:25 Oxygen Delivery Method Room Air 09/13/23 21:40 Medical Decision Making MDM Narrative Medical decision making narrative: I suspect she probably over did it today. Perhaps was standing little too long. Does not appear to have an internal knee derangement. I think would be reasonable to check orthostatics and basic cardiac labs. Monitor on cardiac rehabilitation program director EKG looking for any dysrhythmia. Does not seem to have infectious symptoms at this time. Does have mildly symptomatic PVCs observed on EKG as well as on monitor as I am talking with her. These occur singly. Orthostatics are clearly quite positive. With regard to these orthostatics she seems to indicate that caffeine has been helpful in her sensation of lightheadedness. Labs are reassuring. I think still struggles with cardiac/physical reserve. I did offer IV fluid hydration but she feels she can drink. Has not yet started cardiac rehab but intends to shortly. I do not know at what point would need addition of a stimulant to help with this lightheadedness. I would discuss this further with her electrotype finisher and in the meantime take more care with transitions; move a little slower. She is looking forward to leaving the emergency department. The accompanied with friend a retired ER nurse. See patient discharge plan Lab Data Lab results reviewed: Yes I reviewed the patient's lab results Labs: Lab Results 09/13/23 09/13/23 Range/Units 22:25 22:58 Hgb 12.0 (12.0-16.0) gm/dL Sodium 138 (135-149) mmol/L Potassium 3.8 (3.6-5.1) mmol/L Chloride 107 (96-114) mmol/L Carbon Dioxide 25 (20-32) mmol/L Anion Gap 6 L (7-15) mEq/L BUN 22 (7-30) mg/dL Creatinine 0.8 (0.5-1.5) mg/dL Estimated Creat Clear 41.33 Estimated GFR 76 ml/min Glucose 185 H (60-115) mg/dL Calcium 9.4 (8.4-10.6) mg/dL Magnesium 2.0 (1.5-2.6) mg/dL Troponin I 0.03 (0.01-0.04) ng/mL NT-Pro-B Natriuret Pep 953 pg/mL POC Troponin I 0.00 L (0.01-0.04) ng/ml ECG Data Attestation: I personally reviewed and interpreted this ECG as follows: (Sinus rhythm. Frequent premature ventricular contractions. Prominent P-wave. Rate of 100) Discharge Plan Discharge Clinical Impression: Orthostatic hypotension, Premature ventricular contractions, Physical decondi tioning, Near syncope Patient Disposition: Home w/ Parent or Adult Condition: Stable Additional Instructions: Please take good care in transitions. A walker or maybe a cane might be a good idea to have on hand for now. Hopefully can get started on cardiac rehab soon. I would discuss this with your electrotype finisher. I am not sure at what point or even if they would want you to be on any sort of stimulant. Prescriptions: No Action sertraline 100 mg tablet 250 mg PO Myrbetriq 25 mg tablet extended release 24 hr PO simvastatin 20 mg tablet 20 mg PO Patient Comments: TAKE 1 TABLET BY MOUTH EVERY DAY IN THE EVENING calcium carbonate-vitamin D2 [Calcium with Vitamin D] PO Follow Up/Referrals: Annabelle Encarnacion DO [Primary Care Provider] - Stand Alone Forms: [employer] Info Instructions
[2023-09-13 22:25] VITALS: O2SAT 95
[2023-09-13 22:26] VITALS: BP 100/48; BP 141/60; BP 95/42; PULSE 103; PULSE 92; PULSE 98
[2023-09-13 23:20] LABS: Chloride* 107 mmol/L (96-114); Potassium* 3.8 mmol/L (3.6-5.1); Sodium* 138 mmol/L (135-149)
[2023-09-13 23:23] LABS: Anion Gap 6 mEq/L (7-15); Blood Urea Nitrogen* 22 mg/dL (7-30); Carbon Dioxide* 25 mmol/L (20-32); Creatinine* 0.8 mg/dL (0.5-1.5); Est. Creatinine Clearance* 41.33; Estimated Glomerular Filt Rate 76 ml/min; Glucose* 185 mg/dL (60-115)
[2023-09-13 23:24] LABS: Calcium* 9.4 mg/dL (8.4-10.6)
[2023-09-13 23:34] LABS: NT Pro B Type NatriureticPept* 953 pg/mL
[2023-09-13 23:35] LABS: Troponin I* 0.03 ng/mL (0.01-0.04)
== END 2023-09-14 00:09 | disposition home or self-care (01) ==
PROVIDERS: Emergency Provider Family Medicine; PCP Family Medicine
DX: I95.1 Orthostatic hypotension (principal); I49.3 Ventricular premature depolarization; R53.81 Other malaise
CPT/HCPCS: 36415; 80048; 83735; 83880; 84484; 85018; 93005; 94761; 99284

== ENCOUNTER 2023-10-27 10:21 | Day surgery (SDC) | payer MEDICARE, SELFPAY ==
--- NOTE | 2023-10-27 11:09 | SUR.PREOP ---
case cancelled per surgeon
--- NOTE | 2023-10-27 11:10 | SUR.PREOP ---
patient discharged to home at 1100
== END 2023-10-27 11:00 | disposition home or self-care (01) ==
LOC: OR 10:22
PROVIDERS: PCP Family Medicine; Visit Provider Ophthalmology
DX: Z53.9 Procedure and treatment not carried out, unspecified reason (principal)

== ENCOUNTER 2023-11-03 11:55 | Day surgery (SDC) | payer MEDICARE, SELFPAY ==
--- NOTE | 2023-11-03 12:05 | SUR.PREOP ---
The eye drops brought by the patient (Ketorolac, Prednisolone, and Ofloxacin) are examined and I have determined they are labeled by the patient's pharmacy for this patient as prescribed by the surgeon. The bottles are intact, recently obtained and appear to be correct.
[2023-11-03] MEDS: TETRACAINE 0.5% OPHTH 1 DROP EYE-RIGHT ×2 (12:14→12:28)
[2023-11-03] MEDS: KETOROLAC OPHTH 0.5% 1 DROP EYE-RIGHT ×2 (12:24→12:37)
[2023-11-03 12:29] VITALS: BMI 22.4
--- NOTE | 2023-11-03 12:39 | W.ANESCHARGE ---
Anesthesia Charges Start Date/Time Anesthesia Start Date: 11/03/23 Anesthesia Start Time: 13:28 Stop Date/Time Anesthesia Stop Date: 11/03/23 Anesthesia Stop Time: 13:54 Summary Extremes of Age - Over 70 or under 1: MDA
[2023-11-03 12:46] VITALS: BP 147/63; PULSE 87; RESP 16; TEMP 36.8; O2SAT 97
[2023-11-03] MEDS: SODIUM CHLORIDE 0.9 % (FLUSH) 10 ML SYRINGE IVF (12:51)
[2023-11-03] MEDS: TETRACAINE 0.5% OPHTH 2 DROP EYE-LEFT (13:24)
[2023-11-03] MEDS: BALANCED SALT IRRIG SOLN 15 ML EYE-LEFT (13:29)
--- NOTE | 2023-11-03 13:33 | P.ANES_ITS ---
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
[2023-11-03 14:01] VITALS: BP 134/52; PULSE 92; RESP 16; TEMP 36.9; O2SAT 97
--- NOTE | 2023-11-03 14:28 | P.OPTPRC_ITS ---
Procedure Note Date of procedure: 11/03/23 Will [facility] bill your pro fee for this procedure?: Yes Procedure Description: SURGEON: Mckenzie Lara MD PREOPERATIVE DIAGNOSIS: Nuclear sclerotic cataract, left eye. POSTOPERATIVE DIAGNOSIS: Nuclear sclerotic cataract, left eye. NAME OF OPERATION: Phacoemulsification of cataract with posterior chamber intraocular lens implantation in the left eye. ANESTHESIA: Topical. ESTIMATED BLOOD LOSS: Less than 2 cc. COMPLICATIONS: None. PATHOLOGY SPECIMEN: None. INDICATIONS: See consult note for details. The risks, benefits and alternatives of the procedure were explained to the patient, who elected to proceed and signed informed consent to do so. PROCEDURE: The patient was brought to the pre-holding area where the left eye was identified as the operative eye. I placed my initials above this eye. The patient received eye drops consisting of 0.5% tetracaine, 1% tropicamide, 10% phenylephrine, and 0.5% ketorolac. The patient was then brought to the operating room where the left eye was again identified as the operative eye. The eye was prepped with Betadine and draped in the usual sterile ophthalmic fashion. A #15 super-sharp blade was used to create a paracentesis site. 1% non-preserved intracameral lidocaine was injected into the anterior chamber. Endocoat was injected into the anterior chamber. A 2.4 mm keratome was used to create a three-plane self-sealing incision 1 mm anterior to the temporal limbus. A cystotome was used to create an anterior capsular leaflet. The Utrata forceps were used to extend this to form a continuous curvilinear capsulorrhexis. Hydrodissection was performed. The cataract was removed with phacoemulsification using the naaeyo-pey-qjokjod technique. The irrigation and aspiration tip was used to remove the remaining cortex. Healon was injected into the capsular bag. An SHEMAR ZCB00 intraocular lens of 21.0 diopters was injected into the capsular bag. The irrigation and aspiration tip was used to remove the remaining viscoelastic. Balanced salt solution on a cannula was used to hydrate the wound, and the wound was found to be watertight. The pupil was noted to be round. DISPOSITION: The patient was taken to the recovery room and discharged to home in stable condition. The patient was instructed to call me or go to the emergency department with any sudden change, including dramatic loss of vision, severe pain in the eye or eyebrow region, nausea, or vomiting. The patient will follow up in the clinic tomorrow morning.
== END 2023-11-03 14:17 | disposition home or self-care (01) ==
PROVIDERS: PCP Family Medicine; Visit Provider Ophthalmology
PROC: (CPT 66984; principal; 2023-11-03 12:00)
DX: H25.12 Age-related nuclear cataract, left eye (principal)
CPT/HCPCS: 66984; 00142; 99100; A9270; J2250; J3010; V2632

== ENCOUNTER 2023-11-10 08:52 | Day surgery (SDC) | payer MEDICARE, SELFPAY ==
[2023-11-10] MEDS: TETRACAINE 0.5% OPHTH 1 DROP EYE-RIGHT ×2 (09:10→09:15)
[2023-11-10] MEDS: KETOROLAC OPHTH 0.5% 1 DROP EYE-RIGHT ×2 (09:10→09:15)
[2023-11-10 09:29] VITALS: BMI 22.6
[2023-11-10 09:31] VITALS: BP 138/65; PULSE 84; RESP 16; TEMP 36.7; O2SAT 98
[2023-11-10] MEDS: SODIUM CHLORIDE 0.9 % (FLUSH) 10 ML SYRINGE IVF (09:35)
--- NOTE | 2023-11-10 09:36 | SUR.PREOP ---
The eye drops brought by the patient (Ketorolac, Prednisolone, and Ofloxacin) are examined and I have determined they are labeled by the patient's pharmacy for this patient as prescribed by the surgeon. The bottles are intact, recently obtained and appear to be correct.[email or web address]
--- NOTE | 2023-11-10 09:57 | W.ANESCHARGE ---
Anesthesia Charges Start Date/Time Anesthesia Start Date: 11/10/23 Anesthesia Start Time: 10:02 Stop Date/Time Anesthesia Stop Date: 11/10/23 Anesthesia Stop Time: 10:34 Summary Extremes of Age - Over 70 or under 1: MDA
[2023-11-10] MEDS: TETRACAINE 0.5% OPHTH 2 DROP EYE-RIGHT (10:05)
[2023-11-10] MEDS: BALANCED SALT IRRIG SOLN 15 ML EYE-RIGHT (10:11)
--- NOTE | 2023-11-10 10:25 | P.ANES_ITS ---
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
[2023-11-10 10:34] VITALS: BP 127/53; PULSE 85; RESP 16; TEMP 36.4; O2SAT 97
--- NOTE | 2023-11-10 10:36 | P.OPTPRC_ITS ---
Procedure Note Date of procedure: 11/10/23 Will [facility] bill your pro fee for this procedure?: Yes Procedure Description: SURGEON: Mckenzie Lara MD PREOPERATIVE DIAGNOSIS: Nuclear sclerotic cataract, right eye. POSTOPERATIVE DIAGNOSIS: Nuclear sclerotic cataract, right eye. NAME OF OPERATION: Phacoemulsification of cataract with posterior chamber intraocular lens implantation in the right eye. ANESTHESIA: Topical. ESTIMATED BLOOD LOSS: Less than 2 cc. COMPLICATIONS: None. PATHOLOGY SPECIMEN: None. INDICATIONS: See consult note for details. The risks, benefits and alternatives of the procedure were explained to the patient, who elected to proceed and signed informed consent to do so. PROCEDURE: The patient was brought to the pre-holding area where the right eye was identified as the operative eye. I placed my initials above this eye. The patient received eye drops consisting of 0.5% tetracaine, 1% tropicamide, 10% phenylephrine, and 0.5% ketorolac. The patient was then brought to the operating room where the right eye was again identified as the operative eye. The eye was prepped with Betadine and draped in the usual sterile ophthalmic fashion. A #15 super-sharp blade was used to create a paracentesis site. 1% non-preserved intracameral lidocaine was injected into the anterior chamber. Endocoat was injected into the anterior chamber. A 2.4 mm keratome was used to create a three-plane self-sealing incision 1 mm anterior to the temporal limbus. A cystotome was used to create an anterior capsular leaflet. The Utrata forceps were used to extend this to form a continuous curvilinear capsulorrhexis. Hydrodissection was performed. The cataract was removed with phacoemulsification using the iopgxw-haf-jekbfzl technique. The irrigation and aspiration tip was used to remove the remaining cortex. Healon was injected into the capsular bag. An SHEMAR ZCB00 intraocular lens of 21.0 diopters was injected into the capsular bag. The irrigation and aspiration tip was used to remove the remaining viscoelastic. Balanced salt solution on a cannula was used to hydrate the wound, and the wound was found to be watertight. The pupil was noted to be round. DISPOSITION: The patient was taken to the recovery room and discharged to home in stable condition. The patient was instructed to call me or go to the emergency department with any sudden change, including dramatic loss of vision, severe pain in the eye or eyebrow region, nausea, or vomiting. The patient will follow up in the clinic tomorrow morning.
== END 2023-11-10 11:02 | disposition home or self-care (01) ==
LOC: OR 08:53
PROVIDERS: PCP Family Medicine; Visit Provider Ophthalmology
PROC: (CPT 66984; principal; 2023-11-10 09:00)
DX: H25.11 Age-related nuclear cataract, right eye (principal)
CPT/HCPCS: 66984; 00142; 99100; A9270; J2250; J3010; V2632